=== PATIENT | female | born 1965 | race Caucasian/White ===

== ENCOUNTER 2016-12-07 07:38 | Outpatient (RCR) | payer OTHER | END 2017-03-07 | disposition home or self-care (01) | LOC: PT | DX: M25.572 Pain in left ankle and joints of left foot (principal) ==

== ENCOUNTER 2017-04-29 07:30 | Outpatient (RCR) | payer OTHER | END 2017-04-29 11:32 | disposition home or self-care (01) | LOC: PT 07:30 | DX: M25.572 Pain in left ankle and joints of left foot (principal) ==

== ENCOUNTER 2018-02-08 16:00 | Outpatient (RCR) | payer OTHER | END 2018-02-08 16:30 | disposition home or self-care (01) | LOC: OT 16:00 | DX: S52.551D Other extraarticular fracture of lower end of right radius, subsequent encounter for closed fracture with routine healing (principal) ==

== ENCOUNTER 2018-10-06 16:00 | Outpatient (RCR) | payer BC | END 2018-10-06 16:30 | disposition home or self-care (01) | LOC: PT 16:00 | DX: S76.112D Strain of left quadriceps muscle, fascia and tendon, subsequent encounter (principal); S76.312D Strain of muscle, fascia and tendon of the posterior muscle group at thigh level, left thigh, subsequent encounter; M25.552 Pain in left hip ==

== ENCOUNTER 2018-11-03 09:30 | Outpatient (RCR) | payer BC | END 2018-12-06 | disposition home or self-care (01) | LOC: OT | DX: Z47.89 Encounter for other orthopedic aftercare (principal) ==